=== PATIENT | male | born 1945 | race Caucasian/White ===

== ENCOUNTER 2020-03-24 10:57 | Outpatient (CLI) | payer MEDICARE ==
[~2020-03-24 10:57] MED LIST: ALBU2.5V NEB; ALBU8.5H8 INH; ASPI-496 PO; ATOR40TA78 PO; BUDE10.2 INH; CALC200T3 PO; FLUT1DIS5 IH; LACT1CAP35 PO; LEVO500T8 PO; LOSA50TA14 PO; METF500T17 PO; METH4TAB2 PO; MONT10TA6 PO; TIOT18CA INH
== END 2020-03-24 23:59 | disposition home or self-care (01) ==
LOC: CFH 10:57
PROVIDERS: ATTEND Internal Medicine Cardiovascular Disease
DX: I35.8 Other nonrheumatic aortic valve disorders (principal); I25.10 Atherosclerotic heart disease of native coronary artery without angina pectoris
CPT/HCPCS: 93306